=== PATIENT | female | born 1960 | race Caucasian/White ===

== ENCOUNTER 2019-03-31 11:53 | Emergency (ER) | payer MEDICAID ==
[~2019-03-31] VITALS: Ht 157.5 cm; Wt 61.5 kg
[2019-03-31 11:57] VITALS: Ht 157.5 cm; Wt 61.5 kg
--- NOTE | 2019-03-31 16:17 | ERD ---
ER Documentation Chief Complaint Chief Complaint chest pain x yesterday HPI 59-year-old female presenting with complaints of right upper chest discomfort that has been intermittent, worse with movement, aching, with associated interm ittent tingling in her entire left upper extremity. No other associated symptoms. Pain is not exertional. However when she moves her arm, her pain is exacerbated. No fevers or chills. Yesterday she states that she drank too much coffee on an empty stomach and felt nauseated and had an episode of nonbloody vomiting. That has since resolved but she has had some nausea so has not been eating much. She has not tried to take anything for her pain. Currently she states she has only minimal pain in her right upper chest, worse with touching the area. No neck pain or focal weakness. ROS All systems reviewed and are negative except as per history of present illness. Medications Home Meds No Active Prescriptions or Reported Meds Allergies Allergies: Coded Allergies: No Known Allergy (Unverified , 03/31/19) PMhx/Soc Medical and Surgical Hx: pt denies Medical Hx, pt denies Surgical Hx Hx Alcohol Use: No Hx Substance Use: No Hx Tobacco Use: No Smoking Status: Never smoker FmHx Family History: No diabetes, No coronary disease Physical Exam Vitals Vital Signs Date Temp Pulse Resp B/P (MAP) Pulse Ox O2 O2 Flow FiO2 Time Delivery Rate 03/31/19 98.6 77 18 144/79 99 Room Air 17:29 (100) 03/31/19 98.2 76 18 162/79 98 11:57 (106) Physical Exam Const: No acute distress Head: Atraumatic Eyes: Normal Conjunctiva ENT: Normal External Ears, Nose and Mouth. Neck: Full range of motion. No meningismus. No C-spine or paraspinal muscle tenderness. Chest wall: Point tenderness of anterior right upper chest, reproduces pain Resp: Clear to auscultation bilaterally Cardio: Regular rate and rhythm, no murmurs. 2+ distal pulses in all 4 extremities Abd: Soft, non tender, non distended. Normal bowel sounds Skin: No petechiae or rashes Back: No midline or flank tenderness Ext: No cyanosis, or edema Neur: Awake and alert, normal speech, strength and sensations intact in all 4 extremities Psych: Normal Mood and Affect Result Diagram: 03/31/19 1618 03/31/19 1618 Results 24 hrs Laboratory Tests Test 03/31/19 16:08 03/31/19 16:09 03/31/19 16:18 Bedside Urine pH (LAB) 7.0 Bedside Urine Protein (LAB) Negative Bedside Urine Glucose (UA) Negative Bedside Urine Ketones (LAB) 2+ Bedside Urine Blood Trace-lysed Bedside Urine Nitrite (LAB) Negative Bedside Urine Leukocyte Esterase Trace (L POC Beta HCG, Qualitative NEGATIVE White Blood Count 10.9 10^3/ul Red Blood Count 4.93 10^6/ul Hemoglobin 14.0 g/dl Hematocrit 41.1 % Mean Corpuscular Volume 83.4 fl Mean Corpuscular Hemoglobin 28.4 pg Mean Corpuscular 34.1 g/dl Hemoglobin Concent Red Cell Distribution Width 12.9 % Platelet Count 296 10^3/UL Mean Platelet Volume 12.0 fl Immature Granulocytes % 0.400 % Neutrophils % 62.9 % Lymphocytes % 31.3 % Monocytes % 4.4 % Eosinophils % 0.4 % Basophils % 0.6 % Nucleated Red Blood Cells % 0.0 /100WBC Immature Granulocytes # 0.040 10^3/ul Neutrophils # 6.8 10^3/ul Lymphocytes # 3.4 10^3/ul Monocytes # 0.5 10^3/ul Eosinophils # 0.0 10^3/ul Basophils # 0.1 10^3/ul Nucleated Red Blood Cells # 0.0 10^3/ul Sodium Level 141 mmol/L Potassium Level 3.8 mmol/L Chloride Level 106 mmol/L Carbon Dioxide Level 25 mmol/L Anion Gap 10 Blood Urea Nitrogen 11 mg/dl Creatinine 0.63 mg/dl Est Glomerular Filtrat Rate mL/min > 60 mL/min Glucose Level 89 mg/dl Calcium Level 9.1 mg/dl Troponin I < 0.012 ng/ml Current Medications Medications Dose Sig/Joie Start Time Status Last (Trade) Ordered Route PRN Stop Time Admin Dose Reason Admin Ketorolac 30 mg ONCE STAT 03/31/19 DC 03/31/19 Tromethamine IV 16: 17:03 (Toradol) 03/31/19 16:31 Sodium 1,000 ml @ Q1H STAT 03/31/19 DC 03/31/19 Chloride 1,000 mls/hr IV 16:29 17:03 03/31/19 17:28 Procedures/MDM EMERGENT LABS AND DIAGNOSTIC STUDIES: Lab Results above were reviewed and interpreted by me. CBC: no anemia or evidence of infection BMP: [no e/o clinically significant electrolyte abnormality severe acidosis, alkalosis, renal failure, diabetic ketoacidosis] Troponin within normal limits, not indicative of cardiac ischemia UA: no evidence of infection. Ketones noted 12-lead EKG was interpreted by Javier Duke MD: Normal Sinus Rhythm Normal axis Normal intervals No acute ST or T wave changes suggestive of acute ischemia or STEMI. Radiology Results as interpreted by Radiology below were reviewed by Jose Duke MD: Chest x-ray shows no acute abnormalities Initial Nursing notes reviewed. Previous Medical Records requested via the Electronic Health Record. EMERGENCY DEPARTMENT COURSE / MEDICAL DECISION MAKING: Patient is presenting with chest pain and intermittent right arm numbness. I do not suspect acute coronary syndrome, pulmonary embolism, aortic dissection, pneumonia, or pneumothorax. Vitals are notable for mild hypertension. However I do not suspect hypertensive urgency. Labs did not show any significant abnormalities. EKG did not show any evidence of arrhythmia or ischemia. Patient was treated with Toradol with improvement of her symptoms. Follow-up with PCP was recommended within the next 2 to 3 days. If any of her symptoms worsen, she was encouraged to return to the ER for reexamination. The patient was counseled about the risks of hypertension and urged to pursue outpatient monitoring and therapy within a week with their primary care physician. Departure Diagnosis: Primary Impression: Chest pain Chest pain type: intercostal pain Qualified Codes: R07.82 - Intercostal pain Additional Impression: Arm paresthesia, right Condition: Stable SABRINA DUKE MD Mar 31, 2019 16:17
[2019-03-31] MEDS ORDERED: SOD CHLORIDE 0.9% 1,000 ML IV STA (16:29)
[2019-03-31] MEDS ORDERED: KETOROLAC 30 MG INJ IV STA (16:29)
[2019-03-31 17:29] VITALS: BP 144/79; PULSE 77; RESP 18
== END 2019-03-31 17:32 | disposition home or self-care (01) ==
LOC: E/R 11:53
DX: R07.89 Other chest pain (principal); R20.2 Paresthesia of skin
CPT/HCPCS: 36415; 71045; 80048; 81003; 81025; 84484; 85025; 93005; 96374; J1885; J7030; Z7502